=== PATIENT | male | born 1955 | race Caucasian/White ===

== ENCOUNTER 2016-09-08 10:28 | Emergency (ER) | payer BC ==
[2016-09-08 11:39] LABS: BASO % 0.1 % (0.2-1.2); EOS % 0.5 % (0.8-7.0); GRAN # 6.6 10_X3_uL (1.8-5.4); HEMATOCRIT 46.6 % (40-51); HEMOGLOBIN 16.3 g/dL (13.7-17.5); LYMPH # 1.2 10_X3_uL (1.3-3.6); LYMPH % 14.3 % (21.8-53.1); MEAN CORPUSCULAR HEMOGLOBIN 31.2 pg (27.0-33.0); MEAN CORPUSCULAR VOLUME 89.3 fL (79-92); MEAN PLATELET VOLUME 9.5 fl (7.5-11.5); MONO # 0.8 10_X3_uL (0.3-0.8); MONO % 9.1 % (5.3-12.2); PLATELET COUNT 298 x10_3/uL (163-337); RED BLOOD COUNT 5.22 x10_6/uL (4.6-6.1); RED CELL DISTRIBUTION WIDTH 12.6 % (11.6-14.4); WHITE BLOOD COUNT 8.7 x10_3/uL (4.2-9.1)
[2016-09-08 12:16] LABS: ALBUMIN 4.3 gm/dL (3.4-5.0); ALKALINE PHOSPHATASE 61 U/L (50-136); ALT/SGPT 35 U/L (7.53-40.17); AMYLASE 32 U/L (15.62-74.58); AST/SGOT 28 U/L (6.66-35.34); BILIRUBIN,TOTAL 1.15 mg/dL (0.0-1.0); BLOOD UREA NITROGEN 21 mg/dL (7-18); CALCIUM 9.3 mg/dL (8.7-10.7); CARBON DIOXIDE 22 mmol/L (21-32); GLUCOSE,RANDOM 129 mg/dL (70-99); LIPASE 12 U/L (6.75-60.75); POTASSIUM 4.2 mmol/L (3.5-5.1); SODIUM 136 mmol/L (136-145); TOTAL PROTEIN 7.8 gm/dL (6.4-8.2)
== END 2016-09-08 16:00 | disposition home or self-care (01) ==
LOC: ER 10:28
PROVIDERS: Family Medicine
DX: K52.9 Noninfective gastroenteritis and colitis, unspecified (principal); E86.0 Dehydration; R10.9 Unspecified abdominal pain; I10 Essential (primary) hypertension; Z90.49 Acquired absence of other specified parts of digestive tract; Z79.899 Other long term (current) drug therapy; Z79.891 Long term (current) use of opiate analgesic; Z88.1 Allergy status to other antibiotic agents
CPT/HCPCS: 36415; 80053; 82150; 83605; 83690; 85025; 96374; 96375; 99070; 99283-25; J7040